=== PATIENT | male | born 1965 | race Hispanic/Latino ===

== ENCOUNTER → 2018-08-09 | Outpatient (CLI) | payer OTHER ==
--- NOTE | 2018-08-09 15:18 | Diagnostic Imaging Report ---
SCROTAL ULTRASOUND HISTORY: Chronic pain TECHNIQUE: Sonographic evaluation of the scrotum. Color and pulsed wave Doppler ultrasound was used to assess testicular vasculature. COMPARISON: None available. DISCUSSION: RIGHT TESTIS: The right testis measures 4.8 x 2.3 x 3.6 cm. Normal echotexture, without a focal lesion identified. LEFT TESTIS: The left testis measures 4.7 x 2.2 x 3.2 cm. Normal echotexture, without a focal lesion identified. VASCULAR: There are symmetric, arterial and venous wave forms detected in both testes. Left greater than right varicoceles. EPIDIDYMIDES: Right: 1.3 x 0.7 x 0.9 cm. Unremarkable. Left: 1.1 x 0.7 x 0.7 cm. Unremarkable. SCROTUM: Small bilateral hydroceles. IMPRESSION: 1. No focal testicular abnormality. 2. No evidence of torsion. 3. Left greater than right varicoceles. 4. Small bilateral hydroceles. Signed by: Dr. Jordan Cunningham D.O., M.M.M. on 08/09/2018 3:15 PM
== END ==
LOC: US 14:11
PROVIDERS: ATTEND Urology
DX: G89.29 Other chronic pain (principal); N43.3 Hydrocele, unspecified; I86.1 Scrotal varices
CPT/HCPCS: 76870; 93976

== ENCOUNTER 2025-06-27 17:01 | Emergency (ER) | payer OTHER ==
[~2025-06-27] VITALS: Ht 165.1 cm; Wt 91.6 kg
[2025-06-27 18:30] VITALS: RESP 16
[2025-06-27 18:43] LABS: BASOPHILS % 0.8 % (0.0-1.0); EOSINOPHILS % 6.1 % (0.0-6.0); LYMPHOCYTES % 28.3 % (18.0-39.1); MONOCYTES % 9.5 % (4.4-11.3); NEUTROPHILS % 54.7 % (38.7-80.0); RED CELL DISTRIBUTION WIDTH 12.8 % (11.7-14.4)
[2025-06-27 19:02] LABS: EST GLOMERULAR FILTRATION RATE 89.0 ML/MIN (>=60)
[2025-06-27 19:08] LABS: CORONAVIRUS COVID-19 AG NEGATIVE (NEGATIVE)
[2025-06-27] MEDS ORDERED: IOPAMIDOL 370 MG/ML 100 ML INFUS..BTL INJ ONE (19:32)
[2025-06-27 20:55] VITALS: PULSE 70; TEMP 99
[2025-06-27 21:19] VITALS: BP 127/87; O2SAT 98
== END 2025-06-27 21:00 | disposition home or self-care (01) ==
LOC: ER 18:21
DX: R05.9 Cough, unspecified (principal); J40 Bronchitis, not specified as acute or chronic; S36.892A Contusion of other intra-abdominal organs, initial encounter; I10 Essential (primary) hypertension; E11.65 Type 2 diabetes mellitus with hyperglycemia; E78.5 Hyperlipidemia, unspecified; K42.9 Umbilical hernia without obstruction or gangrene; K76.0 Fatty (change of) liver, not elsewhere classified; Z11.52 Encounter for screening for COVID-19
CPT/HCPCS: 36415; 71045; 74177; 80053; 85025; 87428; 99284; Q9967